=== PATIENT | male | born 1995 | race African-American/Black ===

== ENCOUNTER 2017-03-03 18:48 | Emergency (ER) | payer OTHER ==
--- NOTE | 2017-03-03 19:38 | ED Physician Documentation ---
History of Present Illness - Stated complaint Stated Complaint: MALE - Chief complaint Chief Complaint: General - History obtained from History obtained from: Patient - History of Present Illness Timing: Other (Ex-girlfriend called him and told him that she has Chlamydia and encouraged him to be tested. He has no symptoms.) Review of Systems Constitutional: reports: Reviewed and negative Nose: reports: Reviewed and negative Throat: reports: Reviewed and negative PD PAST MEDICAL HISTORY - Past Medical History Past Medical History: No - Past Surgical History Past Surgical History: No - Present Medications Home Medications: Ambulatory Orders Medication Instructions Recorded Confirmed No Known Home Medications [No 09/02/16 03/03/17 Known Home Medications] - Allergies Allergies/Adverse Reactions: Allergies Allergy/AdvReac Type Severity Reaction Status Date / Time No Known Drug Allergies Allergy Verified 09/02/16 18:32 - Social History Does the pt smoke?: No Smoking Status: Never smoker Does the pt drink ETOH?: No Does the pt have substance abuse?: No - Immunizations Immunizations are current?: Yes PD ED PE NORMAL - Vitals Vital signs reviewed: Yes - General General: Alert and oriented X 3, No acute distress - Abdomen Abdomen: Soft, Non tender - Neuro Neuro: Alert and oriented X 3, Normal speech - Psych Psych: Normal mood, Normal affect Results - Vitals Vitals: Vital Signs - 24 hr 03/03/17 18:58 Temperature 36.4 C L Heart Rate 51 L Respiratory 18 Rate Blood Pressure 137/87 H O2 Saturation 100 Oxygen O2 Source Room air Departure - Departure Disposition: 01 Home, Self Care Clinical Impression: Exposure to chlamydia Condition: Good Record reviewed to determine appropriate education?: Yes Instructions: ED STD Male Treated Comments: Your blood pressure was elevated today on check in to the emergency department. This does not mean that you have hypertension, it is a common phenomenon to check into the emergency department and have elevated blood pressure. I recommend that you see your primary care physician within the week to have it rechecked when you're feeling better.
[2017-03-03] MEDS ORDERED: AZITHROMYCIN 250 MG TABLET PO ONE (19:45)
[2017-03-03] MEDS: AZITHROMYCIN 250 MG TABLET PO STA (19:47)
[2017-03-03 19:53] VITALS: BP 131/70
== END 2017-03-03 19:55 | disposition home or self-care (01) ==
LOC: ED 18:48
DX: Z20.2 Contact with and (suspected) exposure to infections with a predominantly sexual mode of transmission (principal); R03.0 Elevated blood-pressure reading, without diagnosis of hypertension
CPT/HCPCS: 99283

== ENCOUNTER 2019-03-24 11:15 | Emergency (ER) | payer OTHER ==
[2019-03-24] MEDS ORDERED: cefTRIAXone 250 MG VIAL IM STA (11:53)
[2019-03-24] MEDS ORDERED: LIDOCAINE 1% 2 ML VIAL MC ONE (11:53)
[2019-03-24] MEDS ORDERED: AZITHROMYCIN 250 MG TABLET PO STA (11:54)
[2019-03-24 12:55] LABS: BILIRUBIN,URINE NEGATIVE (NEGATIVE); CLARITY,URINE CLEAR (CLEAR); GLUCOSE, URINE (UA) NEGATIVE (NEGATIVE); KETONES,URINE (UA) NEGATIVE (NEGATIVE); LEUKOCYTE ESTERASE, URINE TRACE (NEGATIVE); NITRITE,URINE NEGATIVE (NEGATIVE); OCCULT BLOOD,URINE TRACE-INTA (NEGATIVE); PROTEIN,URINE NEGATIVE (NEGATIVE); UROBILINOGEN,URINE 0.2 (NORMAL) E.U./dL (NORMAL)
[2019-03-24 13:02] LABS: BACTERIA,URINE Rare /HPF (None Seen); SQUAMOUS EPITHELIAL CELL,UR RARE Squamous (<= Few)
--- NOTE | 2019-03-24 13:12 | ED Physician Documentation ---
History of Present Illness - Stated complaint Stated Complaint: MALE - Chief complaint Chief Complaint: General - History obtained from History obtained from: Patient - History of Present Illness Timing: How many weeks ago Severity Comments: moderate Quality: burning, intermittent only with urination Radiates to: none Improved by: nothing Worsened by: urinating Associated symptoms: occasional blood tinged urine. no discharge. no fever. no abdominal pain. no vomiting. - Treatment prior to arrival Treatment prior to arrival: none Review of Systems Ten Systems: 10 systems reviewed and negative Constitutional: denies: Fever, Chills : reports: Dysuria, Hematuria. denies: Frequency, Hesitancy, Unable to Void, Incontinent, Testicular pain, Testicular mass Skin: denies: Rash Musculoskeletal: denies: Joint pain PD PAST MEDICAL HISTORY - Past Medical History Past Medical History: No - Past Surgical History Past Surgical History: No - Present Medications Home Medications: Ambulatory Orders Medication Instructions Recorded Confirmed No Known Home Medications 09/02/16 03/24/19 - Allergies Allergies/Adverse Reactions: Allergies Allergy/AdvReac Type Severity Reaction Status Date / Time No Known Drug Allergies Allergy Verified 03/24/19 11:24 - Social History Does the pt smoke?: No Smoking Status: Never smoker Does the pt drink ETOH?: No Does the pt have substance abuse?: No - Immunizations Immunizations are current?: Yes PD ED PE NORMAL - Vitals Vital signs reviewed: Yes - General General: Alert and oriented X 3 - HEENT HEENT: Atraumatic - Neck Neck: Supple, no meningeal sign - Cardiac Cardiac: RRR - Respiratory Respiratory: No respiratory distress - Abdomen Abdomen: Soft, Non tender, Non distended - Rectal Rectal: Deferred - Derm Derm: Normal color, Warm and dry, No rash - Extremities Extremities: No edema - Neuro Neuro: Alert and oriented X 3 Eye Opening: Spontaneous Motor: Obeys Commands Verbal: Oriented GCS Score: 15 - Psych Psych: Normal mood, Normal affect PD ED PE EXPANDED - Male Male : Normal Exam, Circumcised, Cultures sent. No: Skin lesions, Discharge, Testicular Mass, Tenderness Results - Vitals Vitals: Vital Signs - 24 hr 03/24/19 11:22 Temperature 36.6 C Heart Rate 71 Respiratory 15 Rate Blood Pressure 123/77 O2 Saturation 99 Oxygen O2 Source Room air - Labs Labs: Laboratory Tests 03/24/19 12:47 Urine Color YELLOW Urine Clarity CLEAR Urine pH 6.0 Ur Specific [place] 1.020 Urine Protein NEGATIVE Urine Glucose (UA) NEGATIVE Urine Ketones NEGATIVE Urine Occult Blood TRACE-INTA Urine Nitrite NEGATIVE Urine Bilirubin NEGATIVE Urine Urobilinogen 0.2 (NORMAL) Ur Leukocyte Esterase TRACE H Urine RBC 11-25 H Urine WBC 11-25 H Ur Squamous Epith Cells RARE Squamous Urine Bacteria Rare Ur Microscopic Review INDICATED Urine Culture Comments INDICATED UA not consistent with UTI, labs sent for gonorrhea and chlamydia PD MEDICAL DECISION MAKING - ED course Complexity details: reviewed results, re-evaluated patient, considered differential, d/w patient ED course: 23 y/o M with possible STD exposure, intermittent dysuria and possibly intermittent hematuria. Normal exam. Pt is sexually active with women only and would like to be tested for STDs. DDx includes STD, trichomonas, UTI, kidney stone. Symptoms most c/w possible STD.Treated empirically and sent G/C swab. Departure - Departure Disposition: 01 Home, Self Care Clinical Impression: Concern about STD in male without diagnosis Condition: Stable Instructions: STDs Follow-Up: your,doctor [Other] Comments: You were treated in the ED for a possible STD. Your labs for gonorrhea, chlamydai and trichomonas will take time to result but your urine test was not suggestive of a UTI. You were treated empirically. We will contact you if your results are positive.
[2019-03-24 13:17] VITALS: BP 127/78
== END 2019-03-24 13:17 | disposition home or self-care (01) ==
LOC: ED 11:15
DX: R30.0 Dysuria (principal); R31.9 Hematuria, unspecified; Z20.2 Contact with and (suspected) exposure to infections with a predominantly sexual mode of transmission
CPT/HCPCS: 81001; 87086; 87491; 87591; 96372; 99283; A9270; 81003; 87661

== ENCOUNTER 2019-05-02 22:09 | Emergency (ER) | payer OTHER ==
--- NOTE | 2019-05-02 22:21 | ED Physician Documentation ---
PD HPI HEAD INJURY - Stated complaint Stated Complaint: HEAD INJ - Chief complaint Chief Complaint: Neuro - History obtained from History obtained from: Patient - History of Present Illness Mechanism of head injury: Fell (states he fell playing basketball and bumped forehead. Dazed for few moments, but no LOC, vomiting, visual change, trouble speaking.) Timing - onset: How many hours ago (1), Today Location of injury: Right, Front Quality of pain: Throbbing Associated symptoms: No: LOC, AMS, Nausea / vomiting, Neck pain Symptoms improve with: Ice Symptoms worsen with: Palpation Contributing factors: No: Anticoagulated Similar symptoms before: Has not had sx before Review of Systems Eyes: denies: Loss of vision, Decreased vision, Photophobia GI: denies: Nausea, Vomiting Neurologic: reports: Headache (just in frontal area with the contusion), Head injury. denies: Confused, Altered mental status, LOC PD PAST MEDICAL HISTORY - Past Medical History Cardiovascular: None Respiratory: None Neuro: None Endocrine/Autoimmune: None - Past Surgical History Past Surgical History: No - Present Medications Home Medications: Ambulatory Orders Medication Instructions Recorded Confirmed No Known Home Medications 09/02/16 05/02/19 - Allergies Allergies/Adverse Reactions: Allergies Allergy/AdvReac Type Severity Reaction Status Date / Time No Known Drug Allergies Allergy Verified 05/02/19 22:15 - Social History Does the pt smoke?: No Smoking Status: Never smoker Does the pt drink ETOH?: No Does the pt have substance abuse?: No - Immunizations Immunizations are current?: Yes PD ED PE NORMAL - Vitals Vital signs reviewed: Yes - General General: Alert and oriented X 3, No acute distress, Well developed/nourished - HEENT HEENT: PERRL, EOMI, Pharynx benign, Other (right forehead with local swelling and tenderness. Rest of head/face is normal. ) - Neck Neck: Supple, no meningeal sign, No bony TTP - Derm Derm: Normal color, Warm and dry - Neuro Neuro: Alert and oriented X 3, project planner 2-12 intact, No motor deficit, No sensory deficit, Normal speech, Other Results - Vitals Vitals: Vital Signs - 24 hr 05/02/19 05/02/19 05/02/19 22:11 22:15 22:58 Temperature 36.6 C Heart Rate 59 L 59 L 74 Respiratory 15 15 15 Rate Blood Pressure 138/74 H 138/74 H 127/89 H O2 Saturation 100 100 100 Oxygen O2 Source Room air Departure - Departure Disposition: 01 Home, Self Care Clinical Impression: Contusion of forehead Condition: Stable Record reviewed to determine appropriate education?: Yes Instructions: ED Contusion Scalp Comments: Ice to the area to reduce swelling. Tylenol or ibuprofen as needed for pains. You do not have concussive symptoms at this time. Return if you do develop combination of head injury symptoms. Otherwise expected to be sore overnight into tomorrow. Discharge Date/Time: 05/02/19 22:57
[2019-05-02] MEDS ORDERED: IBUPROFEN 600 MG TABLET PO STA (22:29)
[2019-05-02] MEDS ORDERED: ACETAMINOPHEN 325 MG TABLET PO STA (22:29)
[2019-05-02 22:58] VITALS: BP 127/89
== END 2019-05-02 22:57 | disposition home or self-care (01) ==
LOC: ED 22:09
DX: S00.83XA Contusion of other part of head, initial encounter (principal); W50.0XXA Accidental hit or strike by another person, initial encounter; Y93.67 Activity, basketball; Y92.310 Basketball court as the place of occurrence of the external cause
CPT/HCPCS: 99282; A9270

== ENCOUNTER 2022-11-29 13:14 | Emergency (ER) | payer OTHER ==
[2022-11-29 13:25] VITALS: BP 132/69
--- NOTE | 2022-11-29 13:26 | ED Physician Documentation ---
PD HPI LOWER EXT INJURY - Stated complaint Stated Complaint: L ANKLE INJ - Chief complaint Chief Complaint: Trauma Ext - History obtained from History obtained from: Patient - History of Present Illness PD HPI LOW EXT INJURY LOCATION: Left, Ankle Type of injury: Twist Where injury occurred: Other (playing basketball last evening and had inversion of ankle as landed jump and another person stepped on ankle as well with it twisted.) Timing - onset: Last night Timing - details: Abrupt onset, Still present Associated symptoms: Swelling, Other (pain with walking, limping.). No: Weakness, Numbness Similar symptoms before: Has not had sx before Review of Systems Skin: denies: Abrasion (s), Laceration (s) Musculoskeletal: reports: Joint pain, Joint swelling Neurologic: denies: Focal weakness, Numbness PD PAST MEDICAL HISTORY - Past Medical History Cardiovascular: None Respiratory: None Neuro: None Endocrine/Autoimmune: None - Past Surgical History Past Surgical History: No - Present Medications Home Medications: Ambulatory Orders Medication Instructions Recorded Confirmed Ibuprofen [Motrin] 600 mg PO TID PRN #25 tab 11/29/22 - Allergies Allergies/Adverse Reactions: Allergies Allergy/AdvReac Type Severity Reaction Status Date / Time No Known Drug Allergies Allergy Verified 11/29/22 13:22 - Social History Does the pt smoke?: No Smoking Status: Never smoker Does the pt drink ETOH?: No Does the pt have substance abuse?: No - Immunizations Immunizations are current?: Yes - POLST Patient has POLST: No PD ED PE NORMAL - Vitals Vital signs reviewed: Yes - General General: Alert and oriented X 3, No acute distress, Well developed/nourished - Derm Derm: Normal color, Warm and dry - Extremities Extremities: Other (left ankle with effusion medial and lateral, with tender both areas. Eversion stress hurts but no laxity. Inversion hurts and feels looser for ATFL area. ) - Neuro Neuro: No motor deficit, No sensory deficit Results - Vitals Vitals: Vital Signs - 24 hr 11/29/22 13:20 Temperature 36.6 C Heart Rate 62 Respiratory 16 Rate Blood Pressure 132/69 H O2 Saturation 100 Oxygen O2 Source Room air - Rads (name of study) xray ankle Radiology: Prelim report reviewed, EMP read indepedently (no fractures), See rad report PD Medical Decision Making - ED course Complexity details: reviewed results, considered differential (he has notable effusion in ankle medially and laterally. No gross laxity for eversion, but is loose for inversion at anterior aspect c/w partial tear of ATFL. ), d/w patient Social Determinants of Health: his job involves lot of walking/standing and heavy lifting. Departure - Departure Disposition: 01 Home, Self Care Clinical Impression: Ankle sprain Qualifiers: Encounter type: initial encounter Involved ligament of ankle: unspecified ligam ent Laterality: left Qualified Code(s): S93.402A - Sprain of unspecified ligament of left ankle, initial encounter Condition: Stable Instructions: ED Sprain Ankle W X Ray Follow-Up: IGLESIA Hardenzohaib Bhagat [Provider Group] Prescriptions: Ibuprofen [Motrin] 600 mg PO TID PRN #25 tab PRN Reason: Pain Comments: You do have significant swelling in the ankle joint. Your x-ray is normal without any signs of fractures to my evaluation. It does seem likely that you have some partial tearing of the ligaments along the outer aspect of the ankle. This can take even 3 to 4 weeks sometimes on healing. I would suggest that you have minimal walking and standing and no heavy lifting for likely 3 to 4 weeks with the use of the ankle brace when up and around. Crutches as needed for discomfort of walking and weightbearing. Follow-up with your primary care in about 7 to 10 days for reevaluation and see if you can be more active as its healing. Ice elevate and rest your ankle often the next day or 2 to reduce swelling. Ibuprofen 3 times daily with food for the next week to help with pain and inflammation. Add Tylenol every 4-6 hours if needed. Forms: Activity restrictions Discharge Date/Time: 11/29/22 14:39
[2022-11-29] MEDS ORDERED: IBUPROFEN 800 MG TABLET PO STA (13:49)
--- NOTE | 2022-11-29 15:18 | XRAY Report ---
PROCEDURE: Ankle 3 View LT INDICATIONS: Trauma TECHNIQUE: 3 views of the ankle were acquired. COMPARISON: None FINDINGS: Bones: No fractures or dislocations. Ankle mortise is normally aligned. No suspicious bony lesions . Soft tissues: No tibiotalar joint effusion. Achilles tendon appears normal. IMPRESSION: Normal left ankle radiographs Reviewed by: Marshall Mooney MD on 11/29/2022 2:17 PM [place] Approved by: Marshall Mooney MD on 11/29/2022 2:17 PM [place] Station ID: [id number]
== END 2022-11-29 14:39 | disposition home or self-care (01) ==
LOC: ED 13:14
DX: S93.402A Sprain of unspecified ligament of left ankle, initial encounter (principal); X50.1XXA Overexertion from prolonged static or awkward postures, initial encounter; Y93.67 Activity, basketball
CPT/HCPCS: 73610; 99283; 99284; A9270